=== PATIENT | female | born 1955 | race Caucasian/White ===

== ENCOUNTER → 2016-11-16 08:27 | Outpatient (CLI) | payer MEDICAID ==
[2016-06-28 14:48] VITALS: BMI 19.7
[~2016-11-16 08:27] MED LIST: AMBIEN10 MG PO; CELEXA20 MG PO; HYDROCODONE-APA1 TAB PO; IPRAT-ALBUT 0.5-3 ML UPD; LEVAQUIN500 MG PO; LYRICA50 MG; LYRICA75 MG PO; NEURONTIN600 MG PO; NEXIUM40 MG PO; OMEPRAZOLE40 MG PO; PERCOCET 7.5/321 TAB PO; PHENERGAN25 M1 PO; PRILOSEC20 MG PO; PRINIVIL20 MG PO; SINGULAIR10 MG PO; STERAPRED 5MG 125 MG PO; TYLENOL W/CODEI1 TAB PO; VENTOLIN HFA18 GM INH; XANAX0.5 MG PO; ZOFRAN4 MG PO
== END | disposition home or self-care (01) ==
LOC: D.RAD 08:27
DX: R11.2 Nausea with vomiting, unspecified (principal)

== ENCOUNTER 2016-12-10 11:16 | Day surgery (SDC) | payer MEDICAID ==
[~2016-12-10] VITALS: Ht 139.7 cm; Wt 35.5 kg
[2016-12-10 13:35] VITALS: BP 116/110; Ht 139.7 cm; Wt 35.5 kg
[2016-12-10 13:44] LABS: BASOPHILS 0.8 % (0-2); EOSINOPHILS 3.7 % (0-7); HEMATOCRIT 43.5 % (36.0-48.0); HEMOGLOBIN 14.7 g/dL (12-16); IMMATURE GRANULOCYTES 0.2 % (0-5); LYMPHOCYTES 23.8 % (15-50); MCH 33.4 pg (26.0-34.0); MCHC 33.8 g/dL (31.0-37.0); MCV 98.9 fL (80.0-100.0); MEAN PLATELET VOLUME 10.2 fL (7.4-10.4); MONOCYTES 5.9 % (2-11); NEUTROPHILS 65.6 % (40-80); PLATELET COUNT 243 10x3/uL (130-400); RDW 12.5 % (11.5-14.5); WBC 10.8 10x3/uL (4.8-10.8)
[2016-12-10 13:58] LABS: CALC OSMOLALITY 282 mosm/kg (275-300); CALCIUM 9.9 mg/dL (8.5-10.1); CARBON DIOXIDE 33.5 mmol/L (21.0-32.0); CHLORIDE - SERUM 104 mmol/L (98-107); CREATININE - SERUM 0.7 mg/dL (0.6-1.3); GLUCOSE 79 mg/dL (74-106); SODIUM 143 mmol/L (136-145); UREA NITROGEN 9 mg/dL (7-18); eGFR NON AFRICAN AMERICAN 90 mL/min (90-120)
[2016-12-10] MEDS ORDERED: DIFLUCAN100 MG PO (15:38)
--- NOTE | 2016-12-10 15:45 | NUR ---
PATIENT REQUIRING ENCOURAGEMENT TO DRINK, DENIES NAUSEA, HAS DRANK AND TOLERATED 6 OZ WATER, RIGHT FOREARM PIV DC'D WITH TIP INTACT, PATIENT AMBULATING AROUND ROOM, DRESSING IN PERSONAL CLOTHING
--- NOTE | 2016-12-10 16:05 | NUR ---
DISCHARGED HOME VIA WHEELCHAIR TO PRIVATE VEHICLE WITH SISTER
--- NOTE | 2016-12-11 10:26 | OP ---
PATIENT NAME: CHRISTEL CARLIN MEDICAL RECORD: [id number] :57 LOCATION:D.[facility]ER[facility] ADMISSION DATE: SURGEON: FABIAN LOTT DO DATE OF OPERATION: 12/10/2016 PROCEDURES: EGD with biopsies and balloon dilation less than 30 mm. INDICATIONS FOR PROCEDURE: Epigastric abdominal pain, unspecified dysphagia, heartburn, nausea and vomiting. SCOPE: Olympus video gastroscope. MEDICATIONS: Propofol 150 mg IV per anesthesia. ESTIMATED BLOOD LOSS: Minimal. FINDINGS: Informed consent was given. The patient was made comfortable with the above medication. After reaching an adequate level of sedation by slow IV push, the patient was placed on her left side. The endoscope was then advanced under direct visualization through the mouth to the second portion of the duodenum. In the esophagus, there was the appearance of mild Candidal esophagitis in the proximal, middle and distal third of the esophagus. The distal esophagus had a corkscrew appearance that led down to very tight up lower esophageal sphincter/Schatzki ring. This was able to be passed with the endoscope after general pushing. A balloon dilation was performed up to 15 mm diameter maximum. The maneuver was successful. On retroflexion after dilation, there was bleeding around that site, but the esophageal sphincter did still appear to be hypertensive. Upon retroflexion once in the stomach, there was a large-sized hiatal hernia, which was present. There were patchy areas of granularity and erythema throughout the entire stomach consistent with gastritis. Random biopsies were taken of the antrum, incisura and body of the stomach to rule out H. pylori and to look for gastritis. The scope was advanced into the duodenum where the bulb and second portion of the duodenum appeared normal. The endoscope was then withdrawn from the patient. The patient tolerated the procedure well and there were no complications. IMPRESSION: 1. Candidal esophagitis. 2. A Schatzki ring versus achalasia dilated up to 15 mm without complications. 3. Large hiatal hernia. 4. Erythema and granularity of the stomach consistent with gastritis. Biopsies were taken. PLAN AND RECOMMENDATIONS: 1. Discharge home when recovery parameters are met. 2. GERD diet and reflux precautions. 3. Continue current medications. 4. Antacid therapy. 5. Add Diflucan 100 mg p.o. daily times 21 days to treat the esophageal candidiasis. 6. Follow up in GI clinic in 3-4 weeks. If dysphagia is not better at that time, I will recommend a barium esophagram and consideration of a referral for manometry and management of achalasia if the barium esophagram is consistent with this diagnosis. OPERATIVE REPORT [id number] CHRISTEL CARLIN TRANSINT:[id number] Voice Confirmation ID: [id number] DOCUMENT ID: [id number] FABIAN LOTT DO at 1026 CC: [id number] DICTATION DATE: 12/10/16 1454 [facility]: 12/10/16 1630 [facility] 12/10/16 [facility] [address] [place] [address]
== END 2016-12-10 16:05 | disposition home or self-care (01) ==
LOC: D.OPS 11:16
PROVIDERS: Anesthesiology
DX: B37.81 Candidal esophagitis (principal); K22.2 Esophageal obstruction; K44.9 Diaphragmatic hernia without obstruction or gangrene; K29.50 Unspecified chronic gastritis without bleeding; K21.9 Gastro-esophageal reflux disease without esophagitis; R12 Heartburn

== ENCOUNTER 2017-05-22 19:13 | Inpatient (IN) | payer MEDICAID ==
--- NOTE | ~2017-05-22 | HEMODYNAMI ---
PATIENT:CHRISTEL CARLIN MEDICAL RECORD: [id number] : 57 LOCATION:[facility] D.2126 ADMISSION DATE: 05/22/17 Generatedon:05/23/201715:22 Patient name: CHRISTEL CARLIN Patient #: [id number] SSN: DO B: 1955 Date of study: 05/23/2017 Page: Of Hemodynamic Procedure Report Patient Data Patient Demographics Procedure consent was obtained First Name: CHRISTEL Gender: Female Last Name: RAEGAN : 1955 [facility] Initial: S Age: 62 year(s) Patient #: [id number] Race: Unknown Additional ID: [id number] Contact details Address: [address] [place] [address] [facility] State: [place] City: [facility] Zip code: [address] Admission Admission Data Admission Date: 05/22/2017 Admission Time: 22:00 Room #: D.2126 Height (in.): 55 BSA: 1.16 (m2) Height (cm.): 139.7 BMI: 17.66 (kg/m2) Weight (lbs.): 75.99 Weight (kg.): 34.47 Procedure Procedure Types Cath Procedure Diagnostic Procedure C [facility] w/Coronaries Miscellaneous Procedures Moderate Sedation up to 15 minutes Procedure Description Procedure Date Procedure Date: 05/23/2017 Procedure Start Time: 15:08 Procedure End Time: 15:22 Procedure Staff Name Function Yordy Erazo MD Performing Physician Jason Rebollar RN Nurse Melani Brown RT Monitor Kiki Anderson RT Scrub Procedure Data Cath Procedure Fluoroscopy Diagnostic fluoroscopy Total fluoroscopy Time: 1.1 time: 1.1 min min Diagnostic fluoroscopy Total fluoroscopy dose: 197 dose: 197 mGy mGy Contrast Material Contrast Material Type Amount (ml) Isovue 300 58 Entry Location Entry Primary Successful Side Size Upsize Upsize Entry Closure Succes sful Closure Location (Fr) 1 (Fr) 2 (Fr) Remarks Device Remarks Femoral Right 5 Fr Exoseal artery Estimated blood loss: 5 ml Diagnostic catheters Device Type Used For End Catheter Placement Cordis 5Fr JL 4.0 Left Coronary Catheter (MP) Angiography Cordis 5Fr 3DRC Catheter Right Coronary (MP) Angiography Cordis 5Fr Pigtail LV Angiography Catheter (MP) Procedure Complications No complications Procedure Medications Medication Administration Route Dosage Oxygen NC 2 l/min Heparin Flush Bag added to field 2 bags (1000units/500ml NS) 0.9% NaCl I.V. 100 ml/hr Fentanyl I.V. 50 mcg Versed I.V. 1 mg Fentanyl I.V. 50 mcg Versed I.V. 1 mg Hemodynamics Rest BSA: 1.16 (m2) O2 Consumption: Estimated: 120.4 (ml/min) O2 Consumption indexed: Estimated:103.79 (ml/min/m) Heart Rate: 95 (bpm) Pressure Samples Time Site Value (mmHg) Purpose Heart Use Rate(bpm) 15:14 LV 110/11,22 EDP 87 Gradients Valve Time Site Site Mean SEP/DFP Peak To Heart Use 1 2 (mmHg) (sec/min) Peak Rate (mmHg) (bpm) Aortic 15:14 LV AO 87 Snapshots Pre Cath Intra NCS Post Cath Vital Signs Time Heart Resp SPO2 NIBP (mmHg) Rhythm Pain Sedation Rate (ipm) (%) Status Level (bpm) 15:00:48 80 18 100 115/83(99) NSR 0 (11) 10(A) , No pain 15:04:46 88 16 100 113/83(101) NSR 0 (11) 10(A) , No pain 15:08:43 95 16 100 111/80(96) NSR 0 (11) 10(A) , No pain 15:12:43 86 17 98 102/70(83) NSR 0 (11) 10(A) , No pain 15:16:37 92 17 98 110/83(95) NSR 0 (11) 10(A) , No pain 15:20:32 93 16 99 111/84(94) NSR 0 (11) 10(A) , No pain Medications Time Medication Route Dose Verified Delivered Reason Notes Effec tiveness by by 15:04:15 Oxygen NC 2 Jason Gomez Per l/min Smooth Rebollar RN physician RN 15:04:27 Heparin Flush added 2 Jason Gomez used for Bag to bags Smooth Rebollar RN procedure (1000units/500ml field RN NS) 15:04:38 0.9% NaCl I.V. 100 Jason Gomez Per ml/hr Smooth Rbeollar RN physician RN 15:06:32 Fentanyl I.V. 50 Jason Jason for isidro Rebollar RN sedation RN 15:06:39 Versed I.V. 1 mg Jason Jason for Smooth Rebollar RN sedation RN 15:11:19 Fentanyl I.V. 50 Jason Jason for [facility] Smooth Rebollar RN sedation RN 15:11:23 Versed I.V. 1 mg Jason Jason for Smooth Rebollar RN sedation perinatal breastfeeding assistant Log Time Note 14:25:23 Jason Rebollar RN sent for patient. Start room use. 14:25:30 Time tracking: Regular hours 14:25:33 Plan of Care:Hemodynamics will remain stable., Cardiac rhythm will remain stable., Comfort level will be maintained., Respiratory function will remain adequate., Patient/ family verbilizes understanding of procedure., Procedure tolerated without complication., Recovers from procedure without complications.. 14:55:49 Patient received from PCU to CCL 1 Alert and oriented. Tansferred to table in Supine position. 14:55:51 Warm blankets applied, and samuel hugger turned on for patient comfort. 14:55:51 Correct patient and procedure confirmed by team. 14:55:52 Signed procedure consent form obtained from patient. 14:55:52 ECG and BP/O2 sat monitors applied to patient. 14:57:40 Baseline sample Acquired. 14:57:44 Rhythm: sinus rhythm 14:57:47 Full Disclosure recording started 14:57:52 H&P Date Dictated: 05/23/2017 Within 30 days and on chart.. 14:57:53 Pre-procedure instructions explained to patient. 14:57:53 Pre-op teaching completed and patient verbalized understanding. 14:57:55 Family in patients room. 14:58:03 Patient NPO since Midnight. 14:58:04 Is the patient allergic to Iodine/contrast media? No. 14:58:06 Is patient on blood thinner?No 14:58:08 Patient diabetic? No. 14:58:10 Patient not . Patient is over age 55. 14:58:11 Previous problem with sedation/anesthesia? No ? 14:58:12 Snore? Yes 14:58:13 Sleep apnea? No 14:58:14 Deviated septum? No 14:58:15 Opens mouth fully? Yes 14:58:16 Sticks out tongue? Yes 14:58:19 Airway obstruction? Yes COPD 14:58:22 Dentures? No ? 14:58:24 Pre procedure: right dorsailis pedis pulse 1+ Palpable, but thready & weak; easily obliterated 14:59:07 Modified Phan's test Ulnar > 7 seconds. 14:59:15 FAILED ALLENS 14:59:18 Patient pain scale 0/10 ?. 14:59:25 IV patent on arrival in left forearm with 0.9% NaCl at [facility]. 14:59:28 Lab results completed and on chart. 14:59:34 Right groin area was prepped with chlora-prep and draped in sterile fashion 14:59:40 Vital chart was started 14:59:46 Alarms reviewed by R. N. 14:59:47 Sharps counted by scrub and verified by R.N. 14:59:49 Use device set Femoral Dx 14:59:50 Tegaderm 4 x 4 opened to sterile field. 14:59:51 Acist Hand Control opened to sterile field. 14:59:51 Acist Manifold opened to sterile field. 14:59:52 Acist Syringe opened to sterile field. 14:59:53 Bag Decanter opened to sterile field. 14:59:53 Medline Cath Pack opened to sterile field. 14:59:53 Terumo 5Fr Conover Sheath opened to sterile field. 14:59:54 St Sathya 260cm J .035 wire opened to sterile field. 14:59:55 Diagnostic Infinity 5Fr Multipack catheter opened to sterile field. 15:02:26 Final Timeout: patient, procedure, and site verified with staff and physician. All members of the team are in agreement. 15:02:28 Right groin site verified by team. 15:02:30 Physical assessment completed. ASA score P 2 - A patient with mild systemic disease as per Yordy Erazo MD. 15:02:32 Sedation plan: IV Moderate Sedation Versed, Fentanyl 15:03:20 Patient Weight : 75.99 lbs 15:03:37 Patient Height : 55 inches 15:04:15 Oxygen 2 l/min NC was administered by Jason Rebollar RN; Per physician; 15:04:27 Heparin Flush Bag (1000units/500ml NS) 2 bags added to field was administered by Jason Rebollar RN; used for procedure; 15::38 0.9% NaCl 100 ml/hr I.V. was administered by Jason Rebollar RN; Per physician; 15:06:32 Fentanyl 50 mcg I.V. was administered by Jason Rebollar RN; for sedation; 15::39 Versed 1 mg I.V. was administered by Jason Rebollar RN; for sedation; 15:08:24 Zero performed for pressure channel P1 15::28 Zero performed for pressure channel P1 15::32 Zero performed for pressure channel P1 15::35 Zero performed for pressure channel P1 15::37 Zero performed for pressure channel P1 15::50 Procedure started. 15:08:53 Local anesthetic to right femoral artery with Lidocaine 2% by Yordy Erazo MD.INITIAL ACCESS ONLY 15:09:02 Zero performed for pressure channel P1 15::38 A 5 Fr sheath was inserted into the Right Femoral artery 15:09:40 Baseline sample Acquired. 15:11:19 Fentanyl 50 mcg I.V. was administered by Jason Rebollar RN; for sedation; 15:11:23 Versed 1 mg I.V. was administered by Jason Rebollar RN; for sedation; 15:11:25 A Cordis 5Fr JL 4.0 Catheter (MP) was advanced over the wire and used for Left Coronary Angiography. 15:11:37 Catheter removed. 15:12:17 A Cordis 5Fr 3DRC Catheter (MP) was advanced over the wire and used for Right Coronary Angiography. 15:13:04 Catheter removed. 15:13:13 A Cordis 5Fr Pigtail Catheter (MP) was advanced over the wire and used for LV Angiography. 15:14:39 LV gram done using CHINO 15:14:40 LV hemodynamics recorded. 15:14:46 Injector settings: Ml/sec: 10, Volume: 20, 15:14:50 EF : 50 % 15:14:52 Catheter removed. 15:14:59 Sheath removed intact; hemostasis achieved with Exoseal to the Right Femoral artery. 15:15:01 Procedure ended.(Physican Out) 15:15:15 Fluoroscopy time 01.10 minutes. 15:15:24 Fluoroscopy dose: 197 mGy 15:15:24 Flurop Dose total: 197 15:15:27 Contrast amount:Isovue 300 58ml. 15:15:29 Sharps counted by scrub and verified by R.N. 15:15:31 Insertion/operative site no bleeding no hematoma. 15:15:35 Post-op/insertion site Right Femoral artery dressed using a 4 x 4 and Tegaderm. 15:15:38 Post right femoral artery:stable, clean and dry 15:15:41 Post Procedure Pulses reassessed and unchanged 15:15:43 Post-procedure physical assessment completed. ASA score P 2 - A patient with mild systemic disease as per Yordy Erazo MD. 15:15:45 Post procedure rhythm: unchanged. 15:15:48 Estimated blood loss: 5 ml 15:15:49 Post procedure instruction explained to patient.Patient verbalizes understanding. 15:15:49 Patient needs reinforcement of post procedure teaching. 15:16:05 Procedure Complication : No complications 15:17:27 See physician's report for complete and final results. 15:17:39 Cordis 5Fr Exoseal opened to sterile field. 15:18:33 Procedure and supply charges have been captured, reviewed, submitted and are correct. 15:22:17 Vital chart was stopped 15:22:19 Report given to PCU. 15:22:23 Patient transfered to PCU with Bed. 15:22:31 Procedure ended. 15:22:31 Full Disclosure recording stopped 15:22:35 End room use (Document Last) Device Usage Item Name Manufacture Quantity Catalog Hospital Part Current Minimal Lo t# / Number Charge Number Stock Stock Serial# Code Tegaderm 4 1 [id number] [id number] 269467 5 x 4 Acist Hand Acist 1 00185 522943 108414 902895 5 Control [employer] Inc Acist Acist 1 54312 855524 723297 063343 5 Manifold Medical Systems Inc Acist Acist 1 00167 811290 573893 904299 20 Syringe Medical Systems Inc Bag Microtek 1 2002S 663368 85731 186373 5 Decanter Medical Inc. Medline Cardinal 1 [id number] 900972 58580 263711 5 Cath Pack Health Terumo 5Fr Terumo 1 [id number] 161050 531785 116621 [address] Sathya 1 282445 028961 997105 920833 30 260cm J .035 wire Diagnostic Cardinal 1 [id number] 313436 19961 995063 30 Infinity Health 5Fr Multipack catheter Cordis 5Fr Cardinal 1 [id number] 5 JL 4.0 Health Catheter (MP) Cordis 5Fr Cardinal 1 781105 5 3DRC Health Catheter (MP) Cordis 5Fr Cardinal 1 458955 5 Pigtail Health Catheter (MP) Cordis 5Fr Cardinal 1 EX500 073171 042637 457159 10 [facility] Spherical Systems Signature Audit [place] Stage Time Signature Unsigned Intra-Procedure 05/23/2017 Melani 3:22:46 PM Counts RT(R) Signatures Monitor : Melani Signature : Counts RT Date : Time : [address] [address]
[~2017-05-22 19:13] MED LIST changes: +DIFLUCAN100 MG PO
[2017-05-22 20:13] LABS: BASOPHILS 0.3 % (0-2); EOSINOPHILS 1.7 % (0-7); HEMATOCRIT 39.9 % (36.0-48.0); HEMOGLOBIN 13.5 g/dL (12-16); IMMATURE GRANULOCYTES 0.2 % (0-5); MCH 33.2 pg (26.0-34.0); MCHC 33.8 g/dL (31.0-37.0); MEAN PLATELET VOLUME 9.9 fL (7.4-10.4); MONOCYTES 5.7 % (2-11); NEUTROPHILS 80.1 % (40-80); PLATELET COUNT 229 10x3/uL (130-400); RBC 4.07 10x6/uL (4.00-5.40); RDW 13.5 % (11.5-14.5); WBC 14.5 10x3/uL (4.8-10.8)
[2017-05-22 20:33] LABS: ALBUMIN 3.7 g/dL (3.4-5.0); ALKALINE PHOSPHATASE 92 U/L (46-116); ALT (SGPT) 23 U/L (10-68); BILIRUBIN - TOTAL 0.25 mg/dL (0.2-1.3); CALC OSMOLALITY 277 mosm/kg (275-300); CALCIUM 9.2 mg/dL (8.5-10.1); CARBON DIOXIDE 31.7 mmol/L (21.0-32.0); CHLORIDE - SERUM 102 mmol/L (98-107); CREATININE - SERUM 0.6 mg/dL (0.6-1.3); GLUCOSE 109 mg/dL (74-106); POTASSIUM - SERUM 4.2 mmol/L (3.5-5.1); PROTEIN - SERUM 6.7 g/dL (6.4-8.2); SODIUM 139 mmol/L (136-145); UREA NITROGEN 9 mg/dL (7-18); eGFR NON AFRICAN AMERICAN > 90 mL/min (90-120)
[2017-05-22 20:49] LABS: CREATINE KINASE 157 UL (21-215); PRO BNP 669 pg/mL (0-125)
[2017-05-22 20:51] LABS: TROPONIN-I 0.399 ng/mL (0.000-0.060)
--- NOTE | 2017-05-23 00:15 | NUR ---
RECEIVED REPORT FROM THE ER ON PATIENT WHO PRESENTED WITH SEVERE SOB DUE TO COPD. PT WAS TAKEN FOR CTA AND THEN BROUGHT TO THE FLOOR. PT IS ON 2.5L OXYGEN VIA NASAL CANNUAL. VSS ON ARRIVAL TO THE FLOOR. PT IS UP TO THE BATHROOM WITH ASSIST X1. PT BECAME VERY SOB WITH EXERTION; HOWEVER, ONCE SHE GOT BACK INTO BED, HER BREATHING SETTLED DOWN AND BECAME MUCH LESS LABORED. OXYGEN REMAINS 100% ON SUPPLEMENTAL OXYGEN. PT DENIES CP. NO CURRENT COMPLAINTS. IV ACCESS 20G TO LEFT FOREARM. PT IS OBSERVATION STATUS, SO SHE IS TAKING HER OWN HOME MEDS NEEDED. IN PARTICULAR, SHE HAS TAKEN 1 OF HER AMBIEN TO HELP HER SLEEP. WILL CONT TO MONITOR.
[2017-05-23] MEDS ORDERED: KLONOPIN0.5 MG PO (00:34)
[2017-05-23] MEDS ORDERED: ZOLOFT50 MG PO (00:37)
[2017-05-23 00:51] VITALS: BP 117/87
[2017-05-23 05:21] VITALS: BP 85/57
--- NOTE | 2017-05-23 07:07 | NUR ---
AM ROUNDING DONE WITH PATIENT AROUSING EASILY. ON 2.5 L PER NC. ON HEART MONITOR SHOWING SR, HR 69. LEFT FA WITH SL SEEN. DENIES ANY NEEDS AT PRESENT TIME. INSTRUCTED TO CALL FOR ANY NEEDS EVEN THE RESTROOM. REPLIES THAT SHE UNDERSTANDS THIS. WILL CONTINUE TO MONITOR.
[2017-05-23 07:45] VITALS: BP 94/61
[2017-05-23 08:30] LABS: BASOPHILS 0 % (0-2); CALC OSMOLALITY 275 mosm/kg (275-300); CALCIUM 8.9 mg/dL (8.5-10.1); CARBON DIOXIDE 28.6 mmol/L (21.0-32.0); CHLORIDE - SERUM 102 mmol/L (98-107); CREATININE - SERUM 0.7 mg/dL (0.6-1.3); EOSINOPHILS 0 % (0-7); GLUCOSE 153 mg/dL (74-106); HEMATOCRIT 38.4 % (36.0-48.0); HEMOGLOBIN 13.1 g/dL (12-16); IMMATURE GRANULOCYTES 0.2 % (0-5); LYMPHOCYTES 4.2 % (15-50); MCH 33.4 pg (26.0-34.0); MCHC 34.1 g/dL (31.0-37.0); MEAN PLATELET VOLUME 10.7 fL (7.4-10.4); MONOCYTES 0.9 % (2-11); NEUTROPHILS 94.7 % (40-80); PLATELET COUNT 265 10x3/uL (130-400); RBC 3.92 10x6/uL (4.00-5.40); RDW 13.8 % (11.5-14.5); SODIUM 137 mmol/L (136-145); UREA NITROGEN 11 mg/dL (7-18); eGFR NON AFRICAN AMERICAN 90 mL/min (90-120)
[2017-05-23 08:31] LABS: POTASSIUM - SERUM 5.1 mmol/L (3.5-5.1); WBC 10.4 10x3/uL (4.8-10.8)
[2017-05-23 10:36] VITALS: BMI 17.6
[2017-05-23 11:50] VITALS: BP 107/62
--- NOTE | 2017-05-23 11:53 | NUR ---
STILL NPO FOR HEART CATH TODAY. DENIES ANY NEEDS.
--- NOTE | 2017-05-23 12:40 | CN ---
PATIENT NAME:CHRISTEL CARLIN MEDICAL RECORD: [id number] : 57 LOCATION:D. D.2126 ADMIT DATE: 05/22/17 ACCOUNT: [id number] CONSULTING PHYSICIAN: MARGARITO RAMOS MD REFERRING PHYSICIAN: MARGO VILLANUEVA MD DATE OF CONSULTATION: 05/23/2017 HISTORY OF PRESENT ILLNESS: Wade is a 62-year-old female with known history of coronary artery disease. She has history of hypertension, obstructive pulmonary disease, ongoing smoking history, admitted with chest tightness and pressure in a patient with COPD exacerbation. Troponin showed an obvious rise from ____. Chest tightness resolved with improvement in her pulmonary status. She does have some chest tightness with exertion; however, this again is difficult to interpret given her mild pulmonary disease. We are asked to see her concerning cardiovascular status. PAST MEDICAL HISTORY: Includes: 1. History of hypertension. 2. Obstructive pulmonary disease. 3. Osteoporosis. 4. Gastroesophageal reflux disease. MEDICATIONS: Typically include Omeprazole 40 every day, Klonopin 0.5 b.i.d., Ambien 10 at bedtime, Tylenol #3 one q.4 p.r.n., lisinopril 20 q. day, DuoNebs q.i.d., albuterol q.6, and Phenergan 25 q.6 p.r.n. SOCIAL HISTORY: Lives here in [place]. Does have some difficulty with ADLs due to underlying pulmonary disease. Continues to smoke around a pack a day. REVIEW OF SYSTEMS: The patient reports easy bruising but reports no swollen glands. The patient reports no fever, no night sweats, no significant weight gain, no significant weight loss. No significant exercise tolerance. The patient reports no dry eyes, no irritation, no vision change. Patient reports no difficulty hearing and no ear pain. Patient reports no frequent nose bleeds or nose and sinus problems. Patient reports on arm pain on exertion. No shortness of breath while lying down. No history of heart murmur. Patient reports no cough, no wheezing or coughing up blood. Patient reports no abdominal pain, no vomiting. Normal appetite. No diarrhea and not vomiting blood. No nausea and no constipation. Patient reports no incontinence. No difficulty urinating. No hematuria. No increased frequency. Patient reports no muscle aches. No weakness, no arthralgias, no back pain. No swelling of the extremities. Patient reports no abnormal mole, no jaundice, no rashes. Reports no loss of consciousness. No weakness and no numbness. No seizures, dizziness, or headaches. The patient reports no depression, no sleep disturbance, feeling safe in a relationship and no alcohol abuse. Patient reports on fatigue. Reports no runny nose or sinus pressure. No itching, no hives, and no frequent sneezing. ALLERGIES: No known drug allergies. PHYSICAL EXAMINATION: GENERAL: Chronically ill-appearing female, in no acute distress. VITAL SIGNS: Blood pressure 94/61, pulse 66 and regular. HEENT: Normocephalic, atraumatic. NECK: No JVD or bruit. CONSULT REPORT [id number] CHRISTEL CARLIN HEART: Regular. LUNGS: Prolonged expiratory phase, few expiratory wheezes. ABDOMEN: Soft, nontender. EXTREMITIES: Pulses 2+ with no edema. DIAGNOSTIC DATA: ECG shows poor R-wave progression. IMPRESSION: Acute coronary syndrome, non-ST elevation myocardial infarction. PLAN: Diagnostic angiography, intervention based on the above. TRANSINT:[id number] Voice Confirmation ID: [id number] DOCUMENT ID: [id number] MARGARITO RAMOS MD at 1240 CC: [id number] DICTATION DATE: 05/23/17819 IRONWORKER APPRENTICE SHOP: 05/23/17 1110 ADM IN [place] [id number] [place] [id number]
--- NOTE | 2017-05-23 14:47 | NUR ---
TO [employer] CAPTURE POWER PLANT MANAGER VIA BED.
--- NOTE | 2017-05-23 15:27 | NUR ---
RECEIVED REPORT FROM RHONA IN THE EBD TEACHER.
--- NOTE | 2017-05-23 15:36 | NUR ---
RETURNS FROM REPAIRER VENEER SHEET WITH SLIGHT BLEEDING NOTED TO INNER THIGH. THIS IS NOT SEEN UNDER THE OPSTIE AND GUAZE TO THE RIGHT GROIN. ASSISTED TO FX BEDPAN. RIGHT PPP AND STRONG. TO LAY FLAT X 2 HOURS. WILL MONITOR.
--- NOTE | 2017-05-23 16:09 | NUR ---
1610-STILL LAYING FLAT. DENIES NEEDS AT PRESENT TIME. RIGHT GROIN CATH SITE IS SOFT TO PALPATION. WILL CONTINUE TO MONITOR. PPP AND STRONG.
--- NOTE | 2017-05-23 17:04 | NUR ---
EATING DINNER WITHOUT ANY COMPLAINTS. RIGHT GROIN IS STILL SOFT WITH NO BLEEDING SEEN. WILL CONTINUE TO MONITOR.
--- NOTE | 2017-05-23 17:05 | NUR ---
ASKED IF PATIENT IS SHE WOULD LIKE TO WEAR THE SCD'S AND EXPLAINED THE REASON WHY. SHE REFUSED.
--- NOTE | 2017-05-23 19:21 | NUR ---
PT RESTING IN BED. NS INFUSING TO LEFT FOREARM ORDERED. DRSG CDI. PT C/O GAS IN LOWER ABD. PT IS ON O2 2L NC. TO BATHROOM WITH NO ASSIST. GAIT STEADY. RIGHT GROIN DRSG CDI. PT DENIES ANY NEEDS. NO S/S OF DISTRESS. WILL COPC
[2017-05-23 20:00] VITALS: BP 87/59
--- NOTE | 2017-05-23 21:26 | NUR ---
PT RESTING IN BED. TALKS OF HER CHRONIC BACK PAIN AND PROCESS OF GETTING ALL HER TEETH REMOVED. PT WATCHING TV. DENIES ANY NEEDS, QUESTIONS OR CONCERNS. PT HAS NO S/S OF DISTRESS. WILL CPOC
[2017-05-24] VITALS: BP 86/52
[2017-05-24 01:41] VITALS: BP 86/52
--- NOTE | 2017-05-24 03:44 | NUR ---
PT ASLEEP. RESPIRATIONS EVEN AND UNLABORED. O2 2L NC. PT HAS NO S/S OF DISTRESS. BED LOW CALL LIGHT IN REACH,. WILL CPOC
[2017-05-24 04:00] VITALS: BP 73/46
[2017-05-24 05:33] LABS: BASOPHILS 0.1 % (0-2); EOSINOPHILS 1.2 % (0-7); HEMATOCRIT 34.7 % (36.0-48.0); HEMOGLOBIN 11.8 g/dL (12-16); IMMATURE GRANULOCYTES 0.3 % (0-5); LYMPHOCYTES 34.9 % (15-50); MCH 33.3 pg (26.0-34.0); MEAN PLATELET VOLUME 9.9 fL (7.4-10.4); NEUTROPHILS 54.5 % (40-80); RBC 3.54 10x6/uL (4.00-5.40); RDW 13.7 % (11.5-14.5); WBC 8.9 10x3/uL (4.8-10.8)
[2017-05-24 05:39] LABS: PLATELET COUNT 205 10x3/uL (130-400)
--- NOTE | 2017-05-24 05:42 | NUR ---
PT ASLEEP ON LEFT SIDE. RESPIRATIONS EVEN AND UNLABORED. RR 18. PT AWOKE TO VERBAL STIMULI. PT DENIES ANY NEEDS. NO S/S OF DISTRESS. BED LOW CALL LIGHT IN REACH. WILL CPOC
[2017-05-24 05:56] LABS: CALCIUM 8.2 mg/dL (8.5-10.1); CARBON DIOXIDE 28.8 mmol/L (21.0-32.0); CHLORIDE - SERUM 106 mmol/L (98-107); CREATININE - SERUM 0.6 mg/dL (0.6-1.3); SODIUM 140 mmol/L (136-145); eGFR NON AFRICAN AMERICAN > 90 mL/min (90-120)
[2017-05-24 06:01] LABS: CALC OSMOLALITY 280 mosm/kg (275-300); GLUCOSE 94 mg/dL (74-106); POTASSIUM - SERUM 3.9 mmol/L (3.5-5.1); UREA NITROGEN 17 mg/dL (7-18)
[2017-05-24 06:20] VITALS: BP 93/57
--- NOTE | 2017-05-24 07:20 | NUR ---
AM ROUNDING DONE WITH PATIENT EASILY AROUSED. DENIES ANY CHEST PAIN AT THIS TIME. RIGHT GROIN SITE SOFT TO PALPATION. DRESSING IS C/D/I. PPP AND STRONG. REFUSES TO WEAR BILATERAL SCD'S. ON HEART MONITOR SHOWING SR, HR 73. ON 2L PER NC. LEFT WRIST SEEN WITH SALINE LOCK. WILL MONITOR.
[2017-05-24 08:02] VITALS: BP 94/63
--- NOTE | 2017-05-24 08:04 | NUR ---
PATIENT TO REFUSE SMOKING PATCH WHEN OFFERED.
[2017-05-24 12:00] VITALS: BP 118/80
--- NOTE | 2017-05-24 14:46 | NUR ---
AWAITING PAPERWORK FOR DISCHARGE. DENIES ANY NEEDS AT PRESENT TIME. WILL CONTINUE TO MONITOR.
--- NOTE | 2017-05-24 16:08 | NUR ---
Patient Name: CHRISTEL CARLIN Admission Status: ER Accout number: [id number] Admission Date: 05-23-2017 : 1955 Admission Diagnosis:CHEST PAIN, UNSPECIFIED Attending: MARGO JOHN Current LOS: 1 Anticipated DC Date: 05-24-2017 Planned Disposition: Home Primary Insurance: [place]ICAID [place] Discharge Planning Comments: * Is the patient Alert and Oriented? Yes 0 * How many steps to enter\exit or inside your home? 2 0 * PCP DR. HINA PEREZ 0 * Pharmacy [facility] 0 * Preadmission Environment Home with Family 0 * ADLs Independent 0 * Equipment Nebulizer 0 * Other Equipment UNKNOWN MEDICAL EQUIPMENT PROVIDER PT REPORTS HAVING OVERNIGHT PULSE OXIMETRY ON 05-19-17. 0 * List name and contact numbers for known caregivers / representatives who currently or will assist patient after discharge: MELLY KERR, SISTER, VENECIA HESS, SISTER, 0 * Community resources currently utilized None 0 * Please name any agencies selected above. NONE 0 * Additional services required to return to the preadmission environment? No 0 * Can the patient safely return to the preadmission environment? Yes 0 * Has this patient been hospitalized within the prior 30 days at any hospital? No 0 CM MET WITH PT IN ROOM TO DISCUSS DISCHARGE PLANNING AND NEEDS. PT REPORTS LIVING AT HOME INDEPENDENTLY WITH HER SISTER AND ADULT NEPHEW. PT HAS NEBULIZER AND WAS TESTED FOR OXYGEN ON LAST SATURDAY NIGHT WITH OVERNIGHT PULSE OXIMETRY; SHE IS WAITING ON THE RESULTS, PT CANNOT REMEMBER THE NAME OF HER MEDICAL EQUIPMENT PROVIDER. PT HAS NO OUTSIDE SERVICES ASSISTING IN THE HOME. CM DISCUSSED AVAILABILITY OF HOME HEALTH, REHAB SERVICES AND MEDICAL EQUIPMENT. PT DENIES DISCHARGE NEEDS, REPORTS HER SON WILL PICK HER UP FOR DISCHARGE HOME. Public Relations: Deacon Martel
--- NOTE | 2017-05-24 17:11 | NUR ---
SALINE LOCK REMOVED WITH CATH TIP INTACT. VERBAL AND WRITTEN DISCHARGE INSTRUCTIONS GIVEN TO PATIENT. DISCHARGED HOME VIA WHEELCHAIR.
--- NOTE | 2017-05-28 12:01 | OP ---
PATIENT NAME: CHRISTEL CARLIN MEDICAL RECORD: [id number] :57 LOCATION:D.M2 D.2126 ADMISSION DATE:05/23/17 SURGEON: MARGARITO RAMOS MD DATE OF OPERATION: 05/23/2017 PROCEDURE: Left heart catheterization, selective coronary angiography, right femoral approach. CATHETERS: A 5-Bahraini sheath, 5/4 left and right Linh, 5/4 pig. The procedure was well tolerated and the patient returned to the roque, sheath removed. ExoSeal device was placed. FINDINGS: Left ventriculography in the 30-degree CHINO view shows anterior apical hypokinesis. Overall, function preserved at 50%. CORONARY ANATOMY: LEFT MAIN: Left main is free of disease. LAD: Free of disease in the diagonal system. CIRCUMFLEX: Free of disease in the marginal system. RIGHT CORONARY ARTERY: Dominant artery, gives rise to PDA, free of disease. IMPRESSION: Normal left ventricular systolic function. Normal coronary anatomy. Suspect enzyme elevation secondary to obstructive pulmonary disease and oxygen demand supply mismatch. TRANSINT:[id number] Voice Confirmation ID: [id number] DOCUMENT ID: [id number] MARGARITO RAMOS MD at 1201 CC: [id number] DICTATION DATE: 05/23/17 1521 STOKER MECHANIC: 05/23/17 1844 DIS IN 05/24/17 [id number] [place] [address]
== END 2017-05-24 17:14 | disposition home or self-care (01) | DRG 191 ==
LOC: D.ER 19:13 → D.M2 22:00 → OBSVTIME 22:00 → D.M2 05-23 13:44
PROVIDERS: Family Medicine; Internal Medicine Interventional Cardiology; ADMIT Family Medicine
PROC: B2151ZZ Fluoroscopy of Left Heart using Low Osmolar Contrast (ICD-10-PCS; 2017-05-23)
PROC: 4A023N7 Measurement of Cardiac Sampling and Pressure, Left Heart, Percutaneous Approach (ICD-10-PCS; 2017-05-23)
PROC: B2111ZZ Fluoroscopy of Multiple Coronary Arteries using Low Osmolar Contrast (ICD-10-PCS; principal; 2017-05-23 10:00)
DX: J44.0 Chronic obstructive pulmonary disease with (acute) lower respiratory infection (principal); I24.8 Other forms of acute ischemic heart disease; F17.203 Nicotine dependence unspecified, with withdrawal; J20.9 Acute bronchitis, unspecified; I10 Essential (primary) hypertension; M81.0 Age-related osteoporosis without current pathological fracture; K21.9 Gastro-esophageal reflux disease without esophagitis

== ENCOUNTER 2017-05-27 12:07 | Inpatient (IN) | payer MEDICAID ==
[~2017-05-27 12:07] MED LIST changes: +KLONOPIN0.5 MG PO; +ZOLOFT50 MG PO
[2017-05-27 16:40] LABS: BASOPHILS 0.1 % (0-2); EOSINOPHILS 2.5 % (0-7); HEMOGLOBIN 13.8 g/dL (12-16); IMMATURE GRANULOCYTES 0.3 % (0-5); LYMPHOCYTES 22.2 % (15-50); MCH 33.7 pg (26.0-34.0); MCHC 33.7 g/dL (31.0-37.0); MEAN PLATELET VOLUME 10.3 fL (7.4-10.4); MONOCYTES 8.1 % (2-11); NEUTROPHILS 66.8 % (40-80); PLATELET COUNT 202 10x3/uL (130-400); RDW 13.5 % (11.5-14.5); WBC 14.9 10x3/uL (4.8-10.8)
[2017-05-27 16:52] LABS: ALBUMIN 3.5 g/dL (3.4-5.0); ALKALINE PHOSPHATASE 85 U/L (46-116); ALT (SGPT) 25 U/L (10-68); BILIRUBIN - TOTAL 0.36 mg/dL (0.2-1.3); CALC OSMOLALITY 277 mosm/kg (275-300); CALCIUM 9.7 mg/dL (8.5-10.1); CARBON DIOXIDE 29.4 mmol/L (21.0-32.0); CHLORIDE - SERUM 101 mmol/L (98-107); CREATININE - SERUM 0.7 mg/dL (0.6-1.3); GLUCOSE 87 mg/dL (74-106); POTASSIUM - SERUM 4.4 mmol/L (3.5-5.1); PROTEIN - SERUM 6.6 g/dL (6.4-8.2); SODIUM 140 mmol/L (136-145); UREA NITROGEN 12 mg/dL (7-18); eGFR NON AFRICAN AMERICAN 90 mL/min (90-120)
[2017-05-27 17:07] LABS: CREATINE KINASE 140 UL (21-215)
[2017-05-27 17:18] LABS: TROPONIN-I 0.122 ng/mL (0.000-0.060)
[2017-05-27 18:25] LABS: CKMB 9.2 U/L (0.0-3.6); CREATINE KINASE 142 UL (21-215)
--- NOTE | 2017-05-27 19:20 | NUR ---
RED'D PT FROM ER. PT HAS NO VISIBLE SIGNS OF DISTRESS AND DENIES NEEDS AT THIS TIME. BED IN LOWEST POSITION AND CALL LIGHT WITHIN REACH. ENCOURAGED THE PATIENT TO CALL IF SHE HAS NEEDS.
[2017-05-27 19:40] LABS: CKMB 10.5 U/L (0.0-3.6)
[2017-05-27 19:49] LABS: TROPONIN-I 0.114 ng/mL (0.000-0.060)
[2017-05-27 20:00] VITALS: BP 116/79
--- NOTE | 2017-05-27 20:49 | NUR ---
TELE 100 SR
[2017-05-27 23:01] VITALS: BP 116/79; BMI 18.7
[2017-05-27 23:52] LABS: CKMB 8.5 U/L (0.0-3.6); CREATINE KINASE 134 UL (21-215); TROPONIN-I 0.061 ng/mL (0.000-0.060)
[2017-05-28 06:15] LABS: CKMB 6.6 U/L (0.0-3.6); CREATINE KINASE 105 UL (21-215); TROPONIN-I 0.038 ng/mL (0.000-0.060)
--- NOTE | 2017-05-28 08:00 | NUR ---
PT AWAKE AND ALERT ORIENTED VOICES ALL NEEDS DENIES PAIN WITH NO DISTRESS NOTED CALL LIGHT IN REACH WILL MONITOR
[2017-05-28 08:32] VITALS: BP 113/80
[2017-05-28 08:58] LABS: BASOPHILS 0 % (0-2); EOSINOPHILS 0 % (0-7); HEMATOCRIT 38.9 % (36.0-48.0); HEMOGLOBIN 13.1 g/dL (12-16); IMMATURE GRANULOCYTES 0.1 % (0-5); LYMPHOCYTES 5.2 % (15-50); MCH 33.7 pg (26.0-34.0); MCHC 33.7 g/dL (31.0-37.0); MONOCYTES 1.3 % (2-11); NEUTROPHILS 93.4 % (40-80); PLATELET COUNT 200 10x3/uL (130-400); RBC 3.89 10x6/uL (4.00-5.40); RDW 13.3 % (11.5-14.5)
[2017-05-28 09:06] LABS: ALBUMIN 3.6 g/dL (3.4-5.0); ALKALINE PHOSPHATASE 83 U/L (46-116); ALT (SGPT) 25 U/L (10-68); CALC OSMOLALITY 273 mosm/kg (275-300); CALCIUM 9.3 mg/dL (8.5-10.1); CARBON DIOXIDE 26.5 mmol/L (21.0-32.0); CHLORIDE - SERUM 99 mmol/L (98-107); CREATININE - SERUM 0.6 mg/dL (0.6-1.3); POTASSIUM - SERUM 4.9 mmol/L (3.5-5.1); PROTEIN - SERUM 6.4 g/dL (6.4-8.2); SODIUM 136 mmol/L (136-145); UREA NITROGEN 10 mg/dL (7-18); eGFR NON AFRICAN AMERICAN > 90 mL/min (90-120)
[2017-05-28 09:07] LABS: GLUCOSE 151 mg/dL (74-106)
[2017-05-28 09:13] LABS: WBC 8.3 10x3/uL (4.8-10.8)
[2017-05-28 11:33] VITALS: BP 130/82
[2017-05-28 13:43] VITALS: BMI 18.5
[2017-05-28 15:08] VITALS: BP 117/81
--- NOTE | 2017-05-28 17:20 | NUR ---
UP TO BR WITH ONE PERSON ASSIST. VOIDED WITHOUT DIFFICULTY. SKIN CARE PER SELF. REPOSITIONED IN BED FOR COMFORT. DENIES NEEDS. REPORTS GOOD PAIN MANAGEMENT WITH CURRENT PAIN MEDS.
[2017-05-28 20:00] VITALS: BP 174/72
--- NOTE | 2017-05-28 20:00 | NUR ---
PRN MORPHINE ADMINISTERED AT THIS TIME FOR CHRONIC BACK PAIN. IV LEFT FOREARM PATENT SL. 2L O2 VIA NC. AOX4, DENIES FURTHER NEEDS AT THIS TIME. WILL CONTINUE TO MONITOR.
--- NOTE | 2017-05-28 21:08 | NUR ---
SCHEDULED MEDICATIONS GIVEN AT THIS TIME. PRN KLONOPIN ADMINISTERED FOR ANXIETY. PT UP TO BATHROOM WITHOUT ASSIST, DENIES OTHER NEEDS.
[2017-05-29] VITALS: BP 113/78
--- NOTE | 2017-05-29 00:45 | NUR ---
PRN MORPHINE ADMINISTERED FOR CHRONIC BACK PAIN.
[2017-05-29 04:00] VITALS: BP 105/66
[2017-05-29 05:46] LABS: BASOPHILS 0 % (0-2); EOSINOPHILS 0 % (0-7); HEMATOCRIT 34.9 % (36.0-48.0); HEMOGLOBIN 11.8 g/dL (12-16); IMMATURE GRANULOCYTES 0.3 % (0-5); LYMPHOCYTES 2.5 % (15-50); MCH 33.4 pg (26.0-34.0); MCHC 33.8 g/dL (31.0-37.0); MCV 98.9 fL (80.0-100.0); MEAN PLATELET VOLUME 10.5 fL (7.4-10.4); MONOCYTES 3.3 % (2-11); NEUTROPHILS 93.9 % (40-80); PLATELET COUNT 187 10x3/uL (130-400); RBC 3.53 10x6/uL (4.00-5.40); RDW 13.2 % (11.5-14.5)
[2017-05-29 05:54] LABS: ALBUMIN 3.2 g/dL (3.4-5.0); ALKALINE PHOSPHATASE 68 U/L (46-116); ALT (SGPT) 20 U/L (10-68); CALC OSMOLALITY 281 mosm/kg (275-300); CALCIUM 8.9 mg/dL (8.5-10.1); CARBON DIOXIDE 30.9 mmol/L (21.0-32.0); CHLORIDE - SERUM 103 mmol/L (98-107); CREATININE - SERUM 0.7 mg/dL (0.6-1.3); GLUCOSE 149 mg/dL (74-106); POTASSIUM - SERUM 4.4 mmol/L (3.5-5.1); PROTEIN - SERUM 5.8 g/dL (6.4-8.2); SODIUM 140 mmol/L (136-145); UREA NITROGEN 13 mg/dL (7-18); eGFR NON AFRICAN AMERICAN 90 mL/min (90-120)
--- NOTE | 2017-05-29 07:51 | NUR ---
LYING ON RIGHT SIDE WITH RESPIRATIONS EVEN AND NON LABORED. OXYGEN ON 2L VIA NC. CALL LIGHT IN REACH. BED IN LOWEST POSITION WITH WHEELS LOCKED AND SR X2. WILL CONTINUE WITH PLAN OF CARE.
--- NOTE | 2017-05-29 08:52 | NUR ---
SCHEDULED MEDICATIONS ADMINISTERED AT THIS TIME PER ORDERS. TAKEN WITHOUT DIFFICULTY. PT HAD OXYGEN OFF WHILE EATING SO PULSE OX READING ON ROOM AIR WAS 90%. PT PLACED BACK ON 2L VIA NC AND OXYGEN SATURATION FIORDALIZA TO >92%. IV TO RIGHT HAND LEAKING AROUND CATH SITE SO IV D/C WITH CATH TIP INTACT. IV TO LEFT FOREARM RE-DRESSED DUE TO EXISTING DRESSING COMING OFF OF SKIN. PT DENIES PAIN OR NEEDS AT THIS TIME. CALL LIGHT IN REACH, WILL CONTINUE WITH PLAN OF CARE.
[2017-05-29 08:53] VITALS: BP 102/67
--- NOTE | 2017-05-29 11:19 | NUR ---
Patient Name: CHRISETL CARLIN Admission Status: ER Accout number: [id number] Admission Date: 05-27-2017 : 1955 Admission Diagnosis: Attending: OBED NEWBY Current LOS: 2 Anticipated DC Date: Planned Disposition: Home with Home Health Primary Insurance: MEDICAID [place] Discharge Planning Comments: CM MET WITH PATIENT TO ASSESS DISCHARGE PLANNING NEEDS. PATIENT LIVES INDEPENDENTLY WITH HER SISTER AND HER SON WHERE SHE PLANS TO RETURN TO AT DISCHARGE. PATIENT HAS A NEBULIZER, BUT DOES NOT HAVE O2 AND WILL NEED PRIOR TO DISCHARGE. PATIENT OFFERED HOME HEALTH AND STATED SHE WOULD LIKE TO HAVE HOME HEALTH THIS TIME. RICHARD SIGNED WITH VINCE AND PLACED IN CHART. CM WILL CONTINUE TO FOLLOW AND ASSIST WITH DISCHARGE PLANNING NEEDS. PCP:[facility] MELLY KERR (SISTER) [phone] Drop Wirer: Anais Hedrick * Is the patient Alert and Oriented? Yes 0 * How many steps to enter\exit or inside your home? 2 0 * PCP DR SANTAMARIA 0 * Pharmacy STORE CLERK CHECKER CHRISTIANO SANTIAGO 0 * Preadmission Environment Home with Family 0 * ADLs Independent 0 * Equipment Nebulizer 0 * List name and contact numbers for known caregivers / representatives who currently or will assist patient after discharge: MELLY KERR, SISTER [phone] 0 * Additional services required to return to the preadmission environment? Yes 0 * Can the patient safely return to the preadmission environment? Yes 0 * Has this patient been hospitalized within the prior 30 days at any hospital? Yes 0 Grand Total: 0
--- NOTE | 2017-05-29 11:28 | NUR ---
SCHEDULED MEDICATIONS ADMINISTERED AT THIS TIME WELL PRN NORCO AND MYLICON TABLETS. DENIES FURTHER NEEDS AT THIS TIME, CALL LIGHT IN REACH. WILL CONTINUE WITH PLAN OF CARE.
[2017-05-29 12:17] VITALS: BP 119/81
[2017-05-29 17:12] VITALS: BP 146/99
--- NOTE | 2017-05-29 17:31 | NUR ---
PRN NORCO-10 ADMINISTERED FOR PAIN 5/10 AT THIS TIME.
[2017-05-29 20:00] VITALS: BP 102/71
--- NOTE | 2017-05-29 20:00 | NUR ---
PT RESTING WITH EYES CLOSED. RESPIRATIONS EVEN AND UNLABORED. NO DISTRESS NOTED. CALL LIGHT IN REACH.
--- NOTE | 2017-05-29 21:30 | NUR ---
SCHEDULED MEDICATIONS ADMINISTERED AT THIS TIME. ASSESSMENT COMPLETED PER FLOWSHEET. DENIES ANY PAIN AT THIS TIME. LEFT FOREARM IV SL PATENT. 2L O2. STATED SHE PLANS TO GO HOME TOMORROW. CALL LIGHT IN REACH, WILL CONTINUE TO MONITOR.
[2017-05-30] VITALS: BP 107/71
--- NOTE | 2017-05-30 03:54 | NUR ---
PRN ZOFRAN ADMINISTERED AT THIS TIME FOR NAUSEA.
[2017-05-30 04:00] VITALS: BP 97/65
[2017-05-30 05:45] LABS: BASOPHILS 0 % (0-2); EOSINOPHILS 0 % (0-7); HEMATOCRIT 34.6 % (36.0-48.0); HEMOGLOBIN 11.7 g/dL (12-16); IMMATURE GRANULOCYTES 0.2 % (0-5); LYMPHOCYTES 2.8 % (15-50); MCH 33.4 pg (26.0-34.0); MCHC 33.8 g/dL (31.0-37.0); MCV 98.9 fL (80.0-100.0); MEAN PLATELET VOLUME 11.5 fL (7.4-10.4); MONOCYTES 4.3 % (2-11); NEUTROPHILS 92.7 % (40-80); PLATELET COUNT 197 10x3/uL (130-400); RDW 13.5 % (11.5-14.5); WBC 11.8 10x3/uL (4.8-10.8)
[2017-05-30 06:03] LABS: ALKALINE PHOSPHATASE 69 U/L (46-116); BILIRUBIN - TOTAL 0.32 mg/dL (0.2-1.3); CALCIUM 8.9 mg/dL (8.5-10.1); CARBON DIOXIDE 32.8 mmol/L (21.0-32.0); CHLORIDE - SERUM 105 mmol/L (98-107); CREATININE - SERUM 0.6 mg/dL (0.6-1.3); GLUCOSE 130 mg/dL (74-106); POTASSIUM - SERUM 4.8 mmol/L (3.5-5.1); PROTEIN - SERUM 5.8 g/dL (6.4-8.2); SODIUM 144 mmol/L (136-145); eGFR NON AFRICAN AMERICAN > 90 mL/min (90-120)
[2017-05-30 06:05] LABS: ALT (SGPT) 31 U/L (10-68); CALC OSMOLALITY 291 mosm/kg (275-300); UREA NITROGEN 20 mg/dL (7-18)
--- NOTE | 2017-05-30 07:42 | NUR ---
AM ROUNDS- PT UP TO SIDE OF BED, PT A/O X4, DENIES ANY PAIN AT THIS TIME. RESP EVEN AND UNLABORED, BED LOW AND WHEELS LOCKED, BEDSIDE RAILS X2, CALL LIGHT IN REACH, NAD NOTED, WILL CONTINUE TO MONITOR.
[2017-05-30 08:33] VITALS: BP 117/70
--- NOTE | 2017-05-30 08:43 | NUR ---
AM MEDS GIVEN AT THIS TIME, AND 10MG OF NORCO FOR PAIN LEVEL OF 5/10. PT IN BED, EATING BREAKFAST, DENIES ANY OTHER NEEDS AT THIS TIME. CALL LIGHT IN REACH, NAD NOTED, WILL CONTINUE TO MONITOR.
[2017-05-30] MEDS ORDERED: VIBRAMYCIN 100100 MG PO (10:55)
[2017-05-30] MEDS ORDERED: BROVANA15 MCG/2 M INH (10:56)
[2017-05-30] MEDS ORDERED: NICODERM C1 PATCH .1 TRANSDERM (10:57)
[2017-05-30] MEDS ORDERED: COLACE100 MG PO (10:57)
[2017-05-30] MEDS ORDERED: FLORAJEN3 CAPS460 MG PO (10:57)
[2017-05-30] MEDS ORDERED: MUCINEX600 MG PO (10:58)
[2017-05-30] MEDS ORDERED: TESSALON PERLE100 MG PO (10:58)
[2017-05-30] MEDS ORDERED: PREDNISONE10 MG PO (10:58)
[2017-05-30] MEDS ORDERED: PULMICORT0.5 MG/21 UPD (10:58)
--- NOTE | 2017-05-30 11:14 | NUR ---
PATIENT BEING DISCHARGED HOME TODAY WITH [facility] AND HOME O2 FROM [facility]. PATIENT DENIES ANY OTHER NEEDS FOR DISCHARGE. CM WILL CONTINUE TO FOLLOW AND ASSIST WITH DISCHARGE PLANNING NEEDS NEEDED.
[2017-05-30 12:08] VITALS: BP 109/70
--- NOTE | 2017-05-30 13:04 | NUR ---
1200- PROVIDED VERBAL AND WRITTEN DICHARGE TEACHING TO PT. PT VERBALIZED UNDERSTANDING REGARDING TEACHING. D/C LT FA IV, WITH TIP INTACT. [facility] HERE TO DELIVER PORTABLE OXYGEN. 1250- PT LEFT UNIT VIA WHEELCHAIR, ACCOMPANIED BY SISTER, NAD NOTED.
--- NOTE | 2017-06-14 10:35 | CN ---
PATIENT NAME:CHRISTEL CARLIN MEDICAL RECORD: [id number] : 57 LOCATION:D.MS French2205 ADMIT DATE: 05/27/17 ACCOUNT: [id number] CONSULTING PHYSICIAN: ERIN GARCIA MD REFERRING PHYSICIAN: JASSON NEWBY MD DATE OF CONSULTATION: 05/28/2017 CONSULT REQUESTING PHYSICIAN: Jasson Newby MD REASON FOR CONSULTATION: Acute exacerbation of COPD. HISTORY OF PRESENT ILLNESS: Ms. Carlin is a 62-year-old female who was discharged last week after admitting with acute exacerbation of chronic obstructive pulmonary disease. Also, she had a cardiac catheterization at the same time. According to the patient, when she went home, she got worsening shortness of breath. She was wheezing. She called 911, when the paramedics arrived her pulse ox was in the 60s and the patient was brought into the ER, now she is feeling a little bit better. On further evaluation, she was found out her troponin was high. PAST MEDICAL HISTORY: 1. COPD. 2. Asthma and COPD overlap syndrome. 3. Hypertension. 4. Gastroesophageal reflux disease. 5. Coronary artery disease. PAST SURGICAL HISTORY: 1. She has times 2. 2. Cholecystectomy. 3. Cardiac catheterization. ALLERGIES: She has no known allergy. PRESENT MEDICATIONS: AgileMD is reviewed. PERSONAL AND SOCIAL HISTORY: The patient is still everyday smoker. She is a nondrinker. FAMILY HISTORY: Noncontributory. PHYSICAL EXAMINATION: GENERAL: Now, the patient is lying comfortably in bed. She is not in acute distress. VITAL SIGNS: The blood pressure is 130/82, pulse is 102, respiration is 18, temperature is 97.9, SPO2 is 98% on 2 liters nasal cannula. HEENT: Conjunctivae pink, sclerae nonicteric. NECK: Supple, no JVD. CHEST: The chest excursion is minimal on both sides. There are no wheezing, no rales. HEART: Rhythm regular, normal sound, no murmur. ABDOMEN: Soft. Bowel sounds present. No hepatosplenomegaly. RECTAL: Deferred. EXTREMITIES: No cyanosis, no clubbing, no pedal edema. SKIN: Warm, normal turgor. CONSULT REPORT [id number] CHRISTEL CARLIN CENTRAL NERVOUS SYSTEM: The patient is awake and alert. There is no obvious cranial nerve abnormality. The gait was not tested. LABORATORY DATA: CBC; WBC 14.9, hemoglobin 13.8, hematocrit 41, platelet count 202. Chemistry; her troponin is 0.122. Chest radiograph; there is hyperinflation, no acute infiltrate. ABG; the pH was 7.32, pCO2 was 60.2, the pO2 was 422 on 100% oxygen. IMPRESSION: 1. Wqztx-jx-ydkuthv hypoxic respiratory failure. 2. Acute exacerbation of chronic obstructive pulmonary disease. 3. Possible associated tracheobronchitis. 4. Elevated cardiac enzymes, rule out acute coronary syndrome. 5. Tobacco dependence syndrome. 6. Gastroesophageal reflux disease. RECOMMENDATION: 1. Start on Brovana and budesonide nebulizer, doxycycline per oral b.i.d. 2. Albuterol/ipratropium nebulizer. 3. Methylprednisolone IV. 4. Followup on the D-dimer. If it is positive, we will proceed with CTA of the chest. Dr. Newby thank you for involving me in the care of Ms. Carlin. TRANSINT:[id number] Voice Confirmation ID: [id number] DOCUMENT ID: [id number] ERIN GARCIA MD at 1035 CC: JASSON NEBWY MD [id number] DICTATION DATE: 05/28/17 1431 NONPROFIT MANAGER: 05/28/17 1641 DIS IN 05/30/17 [facility] [address] [place] [address]
== END 2017-05-30 13:06 | disposition home health service (06) | DRG 193 ==
LOC: D.ER 12:07 → D.SDCHOLD 18:04 → D.MS 18:04 → D.SDCHOLD 05-28 15:13 → D.MS 05-28 15:15
PROVIDERS: Emergency Medicine; ADMIT Family Medicine
DX: J18.9 Pneumonia, unspecified organism (principal); J96.21 Acute and chronic respiratory failure with hypoxia; J96.22 Acute and chronic respiratory failure with hypercapnia; J44.0 Chronic obstructive pulmonary disease with (acute) lower respiratory infection; J44.1 Chronic obstructive pulmonary disease with (acute) exacerbation; F17.203 Nicotine dependence unspecified, with withdrawal; J20.9 Acute bronchitis, unspecified; I10 Essential (primary) hypertension; K21.9 Gastro-esophageal reflux disease without esophagitis; I25.10 Atherosclerotic heart disease of native coronary artery without angina pectoris; R79.89 Other specified abnormal findings of blood chemistry; F41.8 Other specified anxiety disorders

== ENCOUNTER 2017-06-04 13:08 | Emergency (ER) | payer MEDICAID ==
[~2017-06-04 13:08] MED LIST changes: +BROVANA15 MCG/2 M INH; +COLACE100 MG PO; +FLORAJEN3 CAPS460 MG PO; +MUCINEX600 MG PO; +NICODERM C1 PATCH .1 TRANSDERM; +PREDNISONE10 MG PO; +PULMICORT0.5 MG/21 UPD; +TESSALON PERLE100 MG PO; +VIBRAMYCIN 100100 MG PO
[2017-06-04 13:57] LABS: BASOPHILS 0.1 % (0-2); EOSINOPHILS 2.7 % (0-7); HEMATOCRIT 39.3 % (36.0-48.0); HEMOGLOBIN 12.9 g/dL (12-16); IMMATURE GRANULOCYTES 0.4 % (0-5); MCH 33.7 pg (26.0-34.0); MCHC 32.8 g/dL (31.0-37.0); MCV 102.6 fL (80.0-100.0); MEAN PLATELET VOLUME 10.3 fL (7.4-10.4); MONOCYTES 9.2 % (2-11); NEUTROPHILS 77.6 % (40-80); PLATELET COUNT 199 10x3/uL (130-400); RBC 3.83 10x6/uL (4.00-5.40); RDW 13.2 % (11.5-14.5); WBC 13.1 10x3/uL (4.8-10.8)
[2017-06-04 14:14] LABS: ALBUMIN 3.4 g/dL (3.4-5.0); ALKALINE PHOSPHATASE 97 U/L (46-116); ALT (SGPT) 25 U/L (10-68); BILIRUBIN - TOTAL 0.53 mg/dL (0.2-1.3); CALC OSMOLALITY 280 mosm/kg (275-300); CALCIUM 9.7 mg/dL (8.5-10.1); CARBON DIOXIDE 37.2 mmol/L (21.0-32.0); CHLORIDE - SERUM 98 mmol/L (98-107); CREATININE - SERUM 0.6 mg/dL (0.6-1.3); GLUCOSE 111 mg/dL (74-106); POTASSIUM - SERUM 4.5 mmol/L (3.5-5.1); PROTEIN - SERUM 6.4 g/dL (6.4-8.2); SODIUM 141 mmol/L (136-145); UREA NITROGEN 11 mg/dL (7-18); eGFR NON AFRICAN AMERICAN > 90 mL/min (90-120)
== END 2017-06-04 15:12 | disposition home or self-care (01) ==
LOC: D.ER 13:08
PROVIDERS: Emergency Medicine
DX: J44.1 Chronic obstructive pulmonary disease with (acute) exacerbation (principal); R06.00 Dyspnea, unspecified; F17.200 Nicotine dependence, unspecified, uncomplicated